=== PATIENT | female | born 1945 | race Caucasian/White ===

== ENCOUNTER 2016-08-15 12:44 | Emergency (ER) | payer MEDICARE, OTHER ==
[~2016-08-15] VITALS: Wt 70.5 kg
[~2016-08-15 12:44] MED LIST: ATEN-51 PO; HYDR-3498 PO; IBUP-1542 PO; TAMS-14 PO
== END 2016-08-15 21:50 | disposition left against medical advice (07) ==
LOC: E/R 12:44
DX: Z53.21 Procedure and treatment not carried out due to patient leaving prior to being seen by health care provider (principal)
CPT/HCPCS: 93005